=== PATIENT | female | born 2000 | race African-American/Black ===

== ENCOUNTER 2021-06-06 11:05 | Emergency (ER) | payer OTHER ==
[~2021-06-06] VITALS: Ht 170.2 cm; Wt 68.0 kg
[2021-06-06] MEDS ORDERED: IBUPROFEN 600 MG TAB PO STA (11:11)
[2021-06-06] MEDS ORDERED: IBUPROFEN 600 MG TAB ONE (11:36)
[2021-06-06] MEDS ORDERED: IBUPROFEN600 MG PO (12:05)
[2021-06-06] MEDS ORDERED: CYCLOBENZAPRINE10 MG PO (12:05)
== END 2021-06-06 12:33 | disposition home or self-care (01) ==
LOC: FSED 11:12
DX: M79.621 Pain in right upper arm (principal); M79.18 Myalgia, other site; S40.021A Contusion of right upper arm, initial encounter; Y04.0XXA Assault by unarmed brawl or fight, initial encounter
CPT/HCPCS: 72040; 99283